=== PATIENT | female | born 1960 | race Caucasian/White ===

== ENCOUNTER → 2023-10-07 12:22 | Outpatient (REF) | payer OTHER, SELFPAY | LOC: RAD 12:22 | PROVIDERS: ATTENDING PHYSICIAN Family Medicine | DX: R10.32 Left lower quadrant pain (principal) | CPT/HCPCS: 74177; Q9967 ==

== ENCOUNTER → 2023-12-02 14:33 | Outpatient (REF) | payer OTHER, SELFPAY | LOC: WDC 14:33 | PROVIDERS: ATTENDING PHYSICIAN Obstetrics & Gynecology; FAMILY PHYSICIAN Family Medicine | DX: Z12.31 Encounter for screening mammogram for malignant neoplasm of breast (principal); N64.4 Mastodynia | CPT/HCPCS: 76642; 77063; 77067 ==

== ENCOUNTER → 2024-04-13 11:53 | Outpatient (REF) | payer OTHER, SELFPAY | LOC: RAD 11:53 | PROVIDERS: ATTENDING PHYSICIAN Internal Medicine Gastroenterology; FAMILY PHYSICIAN Physician Assistant Medical | DX: K59.09 Other constipation (principal) | CPT/HCPCS: 74018 ==

== ENCOUNTER → 2024-06-20 10:05 | Outpatient (REF) | payer OTHER, SELFPAY | LOC: MRI 3T 10:05 | PROVIDERS: ATTENDING PHYSICIAN Otolaryngology; FAMILY PHYSICIAN Physician Assistant Medical | DX: R42 Dizziness and giddiness (principal) | CPT/HCPCS: 70551 ==

== ENCOUNTER 2024-08-19 06:29 | Day surgery (SDC) | payer OTHER, SELFPAY | END 2024-08-19 10:47 | disposition home or self-care (01) | LOC: GI 06:29 | PROVIDERS: ATTENDING PHYSICIAN Internal Medicine Gastroenterology | DX: Z12.11 Encounter for screening for malignant neoplasm of colon (principal); K62.1 Rectal polyp; K21.9 Gastro-esophageal reflux disease without esophagitis; K44.9 Diaphragmatic hernia without obstruction or gangrene | CPT/HCPCS: 45380; 43239; 88305; 88342 ==

== ENCOUNTER → 2025-02-08 07:26 | Outpatient (REF) | payer OTHER, SELFPAY | LOC: HWRAD 07:26 | PROVIDERS: ATTENDING PHYSICIAN Physician Assistant Medical | DX: R10.10 Upper abdominal pain, unspecified (principal) | CPT/HCPCS: 76700 ==